=== PATIENT | female | born 1980 | race Caucasian/White ===

== ENCOUNTER 2023-12-21 07:56 | Outpatient (CLI) | payer BC, SELFPAY ==
--- NOTE | ~2023-12-21 | US_ITS ---
Limited Abdominal Sonogram: Real-time sonographic imaging of the right upper quadrant was performed. Clinical History: Abnormal liver enzymes Findings: The liver appears mildly heterogeneous, with no evidence of mass lesion or bile duct dilat ation. Main portal vein demonstrates normal direction of flow. The gallbladder is absent, compatible prior cholecystectomy. The common bile duct measures 5 mm. The visualized pancreas, aorta, and IVC a re unremarkable. Right kidney measures 10.0 cm in length, without evidence of hydronephrosis. Impression: Probable fatty infiltration of liver versus other chronic liver disease. Status post cholecystectomy. Reviewed, dictated and finalized at location . Impression: Probable fatty infiltration of liver versus other chronic liver disease. Status post cholecystectomy.
== END 2023-12-21 07:57 ==
LOC: MICIMG 07:59
PROVIDERS: PCP Student in an Organized Health Care Education/Training Program; Visit Provider Student in an Organized Health Care Education/Training Program
DX: R74.8 Abnormal levels of other serum enzymes (principal); K76.9 Liver disease, unspecified
CPT/HCPCS: 76705

== ENCOUNTER 2024-08-22 07:19 | Emergency (ER) | payer OTHER, SELFPAY ==
[2024-08-22 07:21] VITALS: BP 126/81; PULSE 96; RESP 20; TEMP 37.2; O2SAT 100
--- OUTSIDE RECORDS SUMMARY | 2024-08-22 07:23 | XMS_ITS | Clinical Summary ---
Author Organization [facility] Address [address] [place] [address] Care Team Providers Care Medicaid Specialist Name Role Phone Unavailable Primary Care Provider Unavailabl e Source Comments [facility],non-owned Affiliates and Associated Physician Practices is amultiple site organization consisting of ambulatory clinics and hospital sitesin [place], [place], [place] and [place]. This disclosure is being madepursuant to the Care Everywhere program and may not contain all information available regarding this patient. Last updated 18.[facility] Allergies Active Allergy Reactions Criticality Noted Date Comments Amoxicillin 08/17/2016 Penicillins 08/17/2016 Medications * Be aware that medications may not be up to date on this document. Alwaysverify current medications with the patient. Medication Sig Dispensed Refills Start Date End Date Status hydrocortisone (HYTONE) 2.5 % creamIndications:Eczem a, unspecified type Apply to affected area 2 times daily 100 g 1 08/17/2016 Active fluocinonide (LIDEX) 0.05 % solutionIndications:Fo lliculitis Apply to affected area 2 times daily 60 mL 1 08/17/2016 Active phentermine (ADIPEX-P) 37.5 MG tablet 1 TABLET ONCE A DAY ORALLY 0 11/01/2016 Active doxycycline (VIBRAMYCIN) 100 MG capsule Take 1 Cap by mouth 2 times daily after meals 60 Cap 11/17/2016 Active clindamycin (CLEOCIN) 1 % gel Apply to affected area 2 times daily 60 g 3 11/17/2016 Active fluconazole (DIFLUCAN) 150 MG tablet Take one and then repeat if needed 2 Tab 1 11/17/2016 Active Active Problems No known active problems Family History Medical History Relation Name Comments Cancer - Skin, Melanoma Mother Cancer - Skin, Non Melanoma Neg Hx Eczema Neg Hx Psoriasis Neg Hx Relation Name Status Comments Mother Social History Tobacco Use Types Packs/Day Years Used Date Smoking Tobacco: Never Tobacco Cessation:Counseling Given: No Sex and Gender Information Value Date Recorded Sex Assigned at Not on file Gender Identity Not on file Sexual Orientation Not on file Last Filed Vital Signs Vital Sign Reading Time Taken Comments Blood Pressure 120/80 11/17/2016 3:14 PM CDT pt reports Pulse - - Temperature - - Respiratory Rate - - Oxygen Saturation - - Inhaled Oxygen Concentration - - Weight 90.7 kg (200 lb) 11/17/2016 3:14 PM CDT Height 162.6 cm (5' 4 ) 11/17/2016 3:14 PM CDT Body Mass Index 34.33 11/17/2016 3:14 PM CDT Plan of Treatment Health Maintenance Due Date Last Done Comments LIPID TESTING 1982 MAMMOGRAM 1982 HIV SCREENING 1997 HEPATITIS C SCREENING 11/03/2000 DTAP/TDAP/TD VACCINES (1 - Tdap) 2001 HEPATITIS B VACCINE (1 of 3 - 19+ 3-dose series) 2001 PAP SMEAR 04/16/2013 04/16/2010, 09/07/2009 COVID-19 VACCINE ( - 2023-2 5 season) 2024 INFLUENZA VACCINE (#1) 2024 DEPRESSION SCREENING 07/10/2024 ZOSTER VACCINE (1 of 2) 2032 HIB VACCINE Aged Out No longer eligi ble based on patient's age to complete this topic HPV VACCINE Aged Out No longer eligi ble based on patient's age to complete this topic MENINGOCOCCAL (Group B) VACCINE Aged Out No longer eligible b ased on patient's age to complete this topic MENINGOCOCCAL VACCINE Aged Out No keira suzi eligible based on patient's age to complete this topic PNEUMOCOCCAL VACCINE Aged Out No long er eligible based on patient's age to complete this topic Procedures Procedure Name Priority Date/Time Associated Diagnosis Comments CYTOLOGY SMEAR PAP THIN PREP MINO 04/16/2010 12:00 AM CDT from Last 3 Months or Most Recently Relevant to Health Maintenance Results * CYTOLOGY SMEAR PAP THIN PREP (04/16/2010 12:00 AM CDT) Result CASE NUMBER [id number] [facility] AP CONVERSION Comment: ORDERING PHYSICIAN BOBY ABREU SPECIMEN TYPE Cervix Date LMP none given Menstrual Status . Clinical History none given SPECIMEN SOURCE Cervical SPECIMEN ADEQUACY Satisfactory for evaluation. Endocervical/transformation zone component present. GENERAL CATEGORIZATI Negative for intraepithelial lesion or malignancy. INTERPRETATION Negative for intraepithelial lesion or malignancy. Predominance of coccobacilli consistent with shift in vaginal carly (bacterial vaginosis). Signed by MIR GOMEZ(ASCP) *NOTE The Pap smear is a cancer screening test with an estimated minimum achievable laboratory false-negative rate of 5%*. For this reason, an annual PAP smear is recommended. Please discuss this with your patients. (*MMWR, CDC, June 27, 1997, page 4.) Released by DAISHA VELIZ Fee Code 1 [id number] MISCELLANEOUS SAMPLE S / Unknown 04/16/2010 04/19/2010 11:31 AM CDT Historical Provider LAB - PATHOLOGY/C YTOLOGY ORDERABLES [facility] AP CONVERSION from Last 3 Months or Most Recently Relevant to Health Maintenance
--- OUTSIDE RECORDS SUMMARY | 2024-08-22 07:23 | XMS_ITS | Clinical Summary ---
Author Organization [facility] Address [address] [place] [address] Phone Care Team Providers Care Theoretical Physicist Name Role Phone Provider, None Primary Care Provider Liset Lopez APRN, BILINGUAL SECRETARY Unavailable [phone] Allergies Active Allergy Reactions Criticality Noted Date Comments Penicillins Anaphylaxis,Rash High 08/17/2016 Medications levonorgestrel (Mirena, 52 MG,) 20 MCG/24HR IUD by Intrauterine route once. Active buPROPion (WELLBUTRIN) 150 MG XL tabletIndicatio ns:Other depression Take 1 Tablet by mouth every morning. 30 Tablet 12 Active Active Problems Problem Noted Date Diagnosed Date Depression 09/27/2020 Vaginal discharge 09/27/2020 Vaginal itching 09/27/2020 Elevated blood pressure reading 09/27/2020 BMI 36.0-36.9,adult 09/27/2020 Menorrhagia with regular cycle 09/27/2020 Encounter for gynecological examination (general) (routine) with abnormal findings 09/23/2020 Encounter for routine checki ng of intrauterine contraceptive device 09/23/2020 Immunizations Immunization Administration Dates Next Due Influenza Vaccine greater than 3 yrs 04/25/2020 Family History Medical History Relation Name Comments No Known Problems Brother 1 No Known Problems Brother 2 Diabetes Father Diabetes Maternal Grandfather Breast Cancer Maternal Grandmother Bleeding Disorder Mother transfusio n: platelet disorder Emphysema Paternal Grandfather No Known Problems Paternal Grandmother No Known Problems Sister No Known Problems Son Relation Name Status Comments Brother 1 Alive Brother 2 Alive Father Alive Maternal Grandfather Maternal Grandmother Mother Alive Paternal Grandfather Paternal Grandmother Sister Alive Son Alive Social History Tobacco Use Types Packs/Day Years Used Date Smoking Tobacco: Never Smokeless Tobacco: Never Tobacco Cessation:Counseling Given: No Comments:no vaping or e-cigarettes Alcohol Use Standard Drinks/Week Comments Never 0 (1 standard drink = 0.6 oz pur e alcohol) PHQ-2 Answer Date Recorded Total Score - Questions 1-9 6 09/07 Sexually Active Control Partners Comments Yes Male Comments No Sex and Gender Information Value Date Recorded Sex Assigned at Not on file Legal Sex Female 11:11 AM 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 Gender Identity Not on file Sexual Orientation Not on file Last Filed Vital Signs Vital Sign Reading Time Taken Comments Blood Pressure 135/103 09/23/2020 3:29 PM CDT Pulse 61 09/23/2020 3:29 PM CDT Temperature - - Respiratory Rate - - Oxygen Saturation - - Inhaled Oxygen Concentration - - Weight 95.3 kg (210 lb) 09/23/2020 3:29 PM CDT Height 162.6 cm (5' 4 ) 09/23/2020 3:29 PM CDT Body Mass Index 36.05 09/23/2020 3:29 PM CDT Plan of Treatment Health Maintenance Due Date Last Done Comments Hepatitis C Virus (HCV) Screening 1982 Hepatitis B Immunization (1 of 3 - 19+ 3-dose series) 2001 HPV/Cotest 2012 Discussion re Starting/Frequency of Mammograms 2022 Cervical Cancer Screening (CCS) 09/24/2023 Pap Smear 09/24/2023 09/23/2020 Influenza Immunization (#1) 03/10/202404/09, 04/30/2019 SARS-COV-2 Immunization ( season) 2024 Respiratory Syncytial Virus (RSV) Immunization (Adult) (1 - 1-dose 75+ series) 2057 DTaP/Tdap/Td Immunization Discontinued 04/30/2019 TdaP Immunization Completed 04/30/2019 Meningococcal Immunization (ACWY) Aged Out No longer eligible based on patient's age to complete this topic Pneumococcal Immunization Combined Aged Out No longer eligible based on patient's age to complete this topic Rotavirus Immunization Aged Out No lo nger eligible based on patient's age to complete this topic Procedures Procedure Name Priority Date/Time Associated Diagnosis Comments PATHOLOGY CYTOLOGY CAFE SITE ATTENDANT Routine 09/23/2020 4:32 PM CDT Screening for malignant neoplasm of cervix from Last 3 Months or Most Recently Relevant to Health Maintenance Results * PATHOLOGY CYTOLOGY CAFE SITE ATTENDANT (09/23/2020 4:32 PM CDT) SPECIMEN ADEQUACY Satisfactory for evaluation. Endocervical/transf ormation zone component is present. 10/08/2020 8:48 AM CDT [facility] DESCRIPTIVE DIAGNOSIS NEGATIVE FOR INTRAEPITHELIAL LESIONS OR MALIGNANCY. 10/08/2020 8:48 AM CDT [facility] Reflex if ASCUS? Yes 10/08/2020 8:48 AM CDT [facility] Automated Examination Analysis of this sample has been assisted by an automated imaging and review system ([employer] System, [employer], [place], [place]). This case is further evaluated and finalized by a wood scaler and/or pathologist. 10/08/2020 8:48 AM CDT [facility] Disclaimer The PAP smear is a screening test designed to detect cancerous or precancerous cells of the uterine cervix. It is one of the best means available for detection of cervical cancer but still carries an inherent false-negative rate. The consequences of a false-negative PAP result can be minimized by adhering to current screening guidelines. The following are general guidelines recommended by the ACS, ASCP, ASCCP, and ACOG: PAP testing is recommended every three years for women 21-29, Co-Testing , a PAP test in conjunction with an HPV (Human Papillomavirus) test for women ages 30-65, and no PAP or HPV testing for women under the age of 21 or older than 65 unless clinically indicated. 10/08/2020 8:48 AM CDT [facility] Other (Cervix/Endocerv ix) Non-Phlebotomy Collection / Unknown 09/23/2020 4:32 PM CDT 09/23/2020 4:32 PM CDT us Liset Nelson APRN, CNP PATHOLOGY/CYTOLOGY ORDERABLES Final Result [facility] [address] [place] [place] [address], [place] from Last 3 Months or Most Recently Relevant to Health Maintenance Care Teams Theoretical Physicist Relationship Specialty Start Date End Date Provider, None [place] PCP - General 09/23/20 Liset Nelson APRN, CNP [place] Nurse Practitioner Advanced Practice Nurse 09/23/20
--- OUTSIDE RECORDS SUMMARY | 2024-08-22 07:23 | XMS_ITS | Referral Summary ---
Author Organization [facility] Address [address] [place] [address] Care Team Providers Care Completions Manager Name Role Phone Unavailable Primary Care Provider Unavailabl e Source Comments [facility],non-owned Affiliates and Associated Physician Practices is amultiple site organization consisting of ambulatory clinics and hospital sitesin [place], [place], [place] and [place]. This disclosure is being madepursuant to the Care Everywhere program and may not contain all information available regarding this patient. Last updated 18.[facility] [employer] Allergies Active Allergy Reactions Criticality Noted Date [...] Active Active Problems No known active problems Social History Tobacco Use Types Packs/Day Years [...] 11/17/2016 3:14 PM CDT Plan of Treatment Not on file Procedures Procedure Name Priority Date/Time Associated Diagnosis [...] vaginal carly (bacterial vaginosis). Signed by MIR GOMEZ([facility]) *NOTE The Pap smear is a cancer screening test with an estimated minimum achievable laboratory false-negative rate of 5%*. For this reason, an annual PAP smear is recommended. Please discuss this with your patients. (*MMWR, CDC, June 27, 1997, page 4.) Released by DAISHA VELIZ Fee Code 1 77249 MISCELLANEOUS SAMPLE S / Unknown 04/16/2010 04/19/2010 11:31 AM CDT Historical Provider LAB - PATHOLOGY/C YTOLOGY ORDERABLES [facility] AP CONVERSION from Last 3 Months or Most Recently Relevant to Health Maintenance
--- OUTSIDE RECORDS SUMMARY | 2024-08-22 07:23 | XMS_ITS | Data Portability ---
Author Organization [facility] [place] Address [address] [place] [address] [place] [address] Care Team Providers Care Soft Mud Molder Name Role Phone ELIJAHJOYCE JOSE Primary Care Provider Assessment No assessment recorded. Plan of Treatment Reminders Order Date Submit Date Provider Last Modified By Organization Details Last Modified Time Details Appointments None recorded. Lab None recorded. Referral None recorded. Procedures None recorded. Surgeries None recorded. Imaging US, pelvis [address], [address], [address], [place], [address], 18:29:59 US, transvagina l [address] [facility] [address], [place], [address], 18:29:59 Medication Orders None recorded. Patient TargetsNo targets recorded. Patient InstructionsNo instructions recorded. Reason for Referral None Reported. Results Created Date Observation Date Name Description Value Unit Range Abnormal Flag Note LastModifiedBy Organization Detail LastModifiedTime 06/16/2006/16/2023 VAGIN ITIS/ VAGIN OSIS, DNA PROBE jaciel sp. detection, direct probe Negati ve negati ve Not Available [facility] (Lab) [address] [facility], [place], [address], 06/19/2023 14:23:46 06/16/2006/16/2023 VAGIN ITIS/ VAGIN OSIS, DNA PROBE gardnerella vag. detection, direct probe Negati ve negati ve Not Available [facility] (Lab) [address] [facility], [place], [address], 06/19/2023 14:23:46 06/16/20 23 06/16/2023 VAGIN ITIS/ VAGIN OSIS, DNA PROBE trichomonas vag. detection, direct probe Negati ve negati ve Not Available [facility] (Lab) [address] [facility], [place], [address], 06/19/2023 14:23:46 06/22/20 23 06/22/2023 US, pelvi s No observ ation record ed. [email or web address] [place] [address], [place], [address], 06/22/2023 18:09:27 06/22/20 23 06/22/2023 US, trans vagin al No observ ation record ed. [email or web address] [place] [address], [place], [address], 06/22/2023 18:09:18 06/22/20 23 06/22/2023 US, pelvi s No observ ation record ed. HEIDI [address], [facility], [place], [address], 06/25/2023 15:52:58 Result Notes None recorded. Procedures Surgical History Date Name Laterality Status Provider Name and Address Organization Details Recorded Time 11/08/19 23 Date of Last Mammogram completed [facility] 06/15/2023 17:20:12 07/10/19 15 cholecystectomy completed [facility] 06/15/2023 17:14:08 07/10/19 07 Dilation and Curettage completed [facility] 06/15/2023 17:13:57 Imaging Results Imaging Date Name Status LastModified by Organization Details LastModified Time 06/22/2023 US, pelvis completed [email or web address] [place] [address], [place], [address], 06/22/2023 18:09:27 06/22/2023 US, transvaginal completed [email or web address] Rei rao [address], [place], [address], 06/22/2023 18:09:18 06/22/2023 US, pelvis completed HEIDI [address], [place], [address], 06/25/2023 15:52:58 Procedure Notes None recorded. Medical Equipment None Reported. Allergies No known drug allergies Medications Name Sig Start Date Stop Date Status Note LastModified by Organization Details LastModified Time fluconazole 150 mg tablet TAKE 1 TABLET BY MOUTH ONCE FOR 1 DOSE AND REPEAT IN 72 HOURS IF NEEDED 06/15 completed Not Available Not Available Not Available ondansetron HCl 4 mg tablet 06/15 completed Not Available Not Available Not Available bupropion HCl XL 300 mg 24 hr tablet, extended release TAKE 1 TABLET BY MOUTH ONCE DAILY active Not Available Not Available No t Available Wegovy 1 mg/0.5 mL subcutaneous pen injector 06/15 completed Not Available Not Available Not Available Wegovy 0.25 mg/0.5 mL subcutaneous pen injector 06/15 completed Not Available Not Available Not Available Wegovy 0.5 mg/0.5 mL subcutaneous pen injector 06/15 completed Not Available Not Available Not Available Vitals Date Recorded Body height Body mass index (BMI) Body weight Provider Name and Address Organization Details Last Updated DateTime 06/15/2023 162.56 cm 36 kg/m2 57604.4 g Lisa Alvarado ID - [facility] 06/15/2023 17:16:05 Date Recorded Systolic blood pressure Diastolic blood pressure Provider Name and Address Organization Details Last Updated DateTime 06/15/2023 122 mm[Hg] 80 mm[Hg] Bambi Soto, NANDO- [address], [place], [address], [facility] 06/15/2023 17:25:18 Social History Question Answer Notes LastModified by Organizat ion Details LastModified Time Tobacco Smoking Status Never Smoker Lisa Alvarado ángel, [facility] 06/15/2023 17:13:46 What Is Your Level Of Alcohol Consumption? None Information not available 06/15/2023 In The 14 Days Before Symptom Onset, Have You Had Close Contact With A Laboratory-confirm ed COVID-19 While That Case Was Ill? No Information n ot available 06/15/2023 In The 14 Days Before Symptom Onset, Have You Had Close Contact With A Person Who Is Under Investigation For COVID-19 While That Person Was Ill? No Information not available 06/15/2023 Have You Been To An Area Known To Be High Risk For COVID-19? No Information not available 06/15/2023 Do You Use Any Illicit Or Recreational Drugs? No Information not available 06/15/2023 Sex: Unknown Functional Status None recorded. Mental Status None recorded. Family History Relationship Description Onset Age of this Age Resolved Age Notes LastModified by Organization Details LastModified Time Mother Anemia Not available 17:12:58 Maternal Grandmother Malignant tumor of breast Not available 2022 17:13:09 Paternal Grandfather Heart disease Not available 2022 17:13:17 Father Diabetes mellitus Not available 2022 17:13:31 Maternal Grandfather Diabetes mellitus Not available 2022 17:13:31 Medical History Condition Response Anxiety Disorder Y Depression/ depression Y Gynecological History Statement/Question Response Abnormal Pap Y Date of Last Mammogram 11/07/2022 Flow Moderate Date of LMP 06/09/2023 On BCP's at Conception? Y Was last menstrual period normal Y STIs/STDs N HPV Vaccine N Duration of Flow (days) 4 Current Control Method IUD Age at First Child 29 Are cycles usually normal Y Sexually Active? N Menses Monthly N Age of first menstrual cycle 14 Date of Last Pap Smear LMP Definite Obstetrics History GPAL:G 2 P 1 0 1 1 Type Value Full Term 1 Induced 1 Living 1 Total 2 Past Encounters Encounter ID Performer Location Encounter Start Date Encounter Closed Date Diagnosis/Indication Diagnosis SNOMED-CT Code Diagnosis ICD10 Code Diagnosis Note [id number] Bambi Soto [facility] [address],[facility] [place] [address] 06/15/2023 17:03:45 06/15/2023 17:48:36 Vaginitis 70136626 N76.0 Today we discussed prn use of Boric acid with sx's onset.Inst ructions reviewed and understand ing verbalized .Instructi ons given for additional home reference. Swab sentDeclin ed std screenWe will f/u if this does not work for her after 3mos.If it works no need to f/u.Will contact with results a vaginitis swab and if further treatment is required. Time spent in visit is a total of 30 mins with at least 50% of visit consisting of counseling and review of plan of care. Premenstru al tension syndrome 71532444 N94.3 BloatingAb dominal crampingRe started her cycle with IUD mirena Abnormal u terine bleeding 8236504279 9100 N93.9 We agreed to US since new onset of menses on her mirena is new for her and bringing on more sx's of abd bloating and dysmenorrh ea.Will f/u televisit to discuss unless results warrant in office exam/visit .Stuart lubin verbalized . [id number] Elaina Cruz [place] [address] [address] 06/22/2023 17:15:14 06/22/2023 18:12:17 Abnormal uterine bleeding [id number] 9100 N93.9 [id number] Bambi Soto [facility] [address],[facility] [place] [address] 06/23/2023 11:32:40 06/23/2023 12:40:43 Abnormal uterine bleeding [id number] 9100 N93.9 Today we reviewed US results and discussed plan of care.We agreed to monitor at this time as bleeding likely represents return of a light period as it is cyclic.PMS feelings that she will get are also cyclic.She will reach out with any changes in her sx's or health status.Und erstanding verbalized and agreeable to plan of care. Total time of virtual/te le-visit was approx 21 mins with >50% consisting of counseling , education of patient's plan of care. Health Concerns Section Related Observation LastModified by Organization Detai ls LastModified Time None Recorded Concern Status LastModified by Organization Details LastModified Time None Recorded Advance Directives Directive None Recorded Payers Encounter Date Sequence Insurance Name Policy Number Policy Rolon Covered Member ID Rolon Member ID Guarantor Name 06/15/2023 1 [employer]: [employer] 133 Rebekah Villalta [id number] Rebekah Villalta 06/22/2023 1 [employer]EE [employer]GRAM 133 Rebekah Jose D Green [id number] Rebekah Green 06/23/2023 1 [employer]EE [employer] 133 Rebekah Jose D Green [id number] Rebekah Pawan Notes Date Note Type Note Provider Name and Address Organization Details Recorded Time 06/15/2023 text/html Rebekah presents today to discuss sx's of yeast infection up to 4 day prior to onset of a menses; this happened prior to mirena IUD insertion. She hasn't had a menses on mirena since placement until now.Return of light monthly 3-4 days cycle.Sx's stop after period starts.Also increase in PMS sx's which include abdominal bloating and cramping.No mood sx'sNo changes in appetite.She is not currently SAShe has no yeast infection/pms sx's today Neg pain of abd/pelvis/flank Neg urinary sx'sNeg GI sx'sNeg N/V/F/C/DNeg Vag d/c, odor, irritation, itching Health Hx was reviewed and updated as reported in chart. Bambi Soto, [facility]- [address], [place], [address], [place] ID - [facility] 06/15/2023 17:47:58 06/23/2023 text/html Tele-visit for ultrasound results & review of plan of care. Phone Consent: This visit was completed via Virtual Visit Zoom/Tele-visit; all issues as below were discussed and addressed but no physical exam was performed. If it was felt that the patient should be evaluated in clinic then they were directed there. The patient verbally consented to this virtual Zoom or Tele-visit. BRIANA Dougherty- [address], [place], [address], [place] [facility] 06/23/2023 12:31:34 OBGyn Episode Ob Episode Information Episode Created Date Number of Fetuses Patient Bloodtype Patient rh Status Prepregnancy Weight lbs Domestic Partner Domestic Partner Phone Father Name Director Of Occupational Therapy Status 06/15/20 1 CLOSED Fetus Data First Name Last Name Admitted to NICU Weight (g) Sex Living Outcome Pediatric Complications Fetus ID Race Codes Race Delivery Type 2267.96 M Full Term [id number] Vaginal Delivery Gilles Calculation Initial Gilles Date Initial Exam Date Initial Exam Provider Initial Ultrasound Date Last Menstrual Period Date Ultra Sound Weeks Gestation 0 Eighteen To Twenty Week Gilles Update Ultra Sound Date Fundal Height At Umbil Quickening Date Ultra Sound Latest Weeks Gestation Final Gilles Confirmed By Final Gilles Confirmed Date Final Gilles Date Ultra Sound Latest Days Gestation 0 0 Menstrual History Last Menstrual Date Menses Monthly On Bcp Conception Prior Menses Frequency Hcg Plus Date Menarche Onset Age Delivery Information Delivery Date Delivery Type Labor Anesthesia Weeks Gestation Incision Type Labor Labor Length Hrs Delivered By Post Complications Tubal Sterilization Discharge Date Comments 0 39 Discharge Information Feeding Method Contraceptive Method Maternal HG B and HCT Levels Ob Episode Information Episode Created Date Number of Fetuses Patient Bloodtype Patient rh Status Prepregnancy Weight lbs Domestic Partner Domestic Partner Phone Father Name Director Of Occupational Therapy Status 06/15/20 1 CLOSED Fetus Data First Name Last Name Admitted to NICU Weight (g) Sex Living Outcome Pediatric Complications Fetus ID Race Codes Race Delivery Type , Induced [id number] Gilles Calculation Initial Gilles Date Initial Exam Date Initial Exam Provider Initial Ultrasound Date Last Menstrual Period Date Ultra Sound Weeks Gestation 0 Eighteen To Twenty Week Gilles Update Ultra Sound Date Fundal Height At Umbil Quickening Date Ultra Sound Latest Weeks Gestation Final Gilles Confirmed By Final Gilles Confirmed Date Final Gilles Date Ultra Sound Latest Days Gestation 0 0 Menstrual History Last Menstrual Date Menses Monthly On Bcp Conception Prior Menses Frequency Hcg Plus Date Menarche Onset Age Delivery Information Delivery Date Delivery Type Labor Anesthesia Weeks Gestation Incision Type Labor Labor Length Hrs Delivered By Post Complications Tubal Sterilization Discharge Date Comments 7 Discharge Information Feeding Method Contraceptive Method Maternal HG B and HCT Levels
--- OUTSIDE RECORDS SUMMARY | 2024-08-22 07:23 | XMS_ITS | Patient Health Summary ---
Author Organization [facility] Address [address] [place] [address] Care Team Providers Care Business Continuity Analyst Name Role Phone Unavailable Primary Care Provider Unavailabl e Note from [facility],non-owned Affiliates and Associated Physician Practices is amultiple site organization consisting of ambulatory clinics and hospital sitesin [place], [place], [place] and [place]. This disclosure is being madepursuant to the Care Everywhere program and may not contain all information available regarding this patient. Last updated 18.[facility] Allergies * Amoxicillin * Penicillins Medications * Be aware that medications may not be up to date on this document. Alwaysverify current medications with the patient. * hydrocortisone (HYTONE) 2.5 % cream(Started 08/17/2016) Apply to affected area 2 times daily 1 refill remaining * fluocinonide (LIDEX) 0.05 % solution(Started 08/17/2016) Apply to affected area 2 times daily 1 refill remaining * phentermine (ADIPEX-P) 37.5 MG tablet(Started 11/01/2016) 1 TABLET ONCE A DAY ORALLY * doxycycline (VIBRAMYCIN) 100 MG capsule(Started 11/17/2016) Take 1 Cap by mouth 2 times daily after meals * clindamycin (CLEOCIN) 1 % gel(Started 11/17/2016) Apply to affected area 2 times daily 3 refills remaining * fluconazole (DIFLUCAN) 150 MG tablet(Started 11/17/2016) Take one and then repeat if needed 1 refill remaining Active Problems No known active problems Social [...] Mass Index 34.33 11/17/2016 3:14 PM CDT Procedures * CYTOLOGY SMEAR PAP THIN PREP(Performed 04/16/2010) * CYTOLOGY SMEAR PAP THIN PREP(Performed 09/07/2009) Results * CYTOLOGY SMEAR PAP THIN PREP (04/16/2010 12:00 AM CDT) Only the most recent of2 resultswithin the time period is included. Result CASE NUMBER [id number] [facility] CONVERSION Comment: ORDERING PHYSICIAN BOBY ABREU [...] Released by DAISHA VELIZ Fee Code 1 65240 MISCELLANEOUS SAMPLE S / Unknown 04/16/2010 04/19/2010 11:31 AM CDT Historical Provider LAB - PATHOLOGY/C YTOLOGY ORDERABLES [facility] AP CONVERSION
--- OUTSIDE RECORDS SUMMARY | 2024-08-22 07:24 | XMS_ITS | Referral Summary ---
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 Gender Identity Not on file Sexual Orientation Not on file Plan of Treatment Not on file Procedures Procedure Name Priority Date/Time Associated Diagnosis Comments SCREENING MAMMOGRAM BILATERAL W ANTONIO Schedule Routine, Read Routine (OP Routine) 12/07/2023 8:37 AM CDT Screening mammogram, encounter for from Last 3 Months or Most Recently Relevant to Health Maintenance Results * Screening Mammogram Bilateral W Antonio (12/07/2023 8:37 AM CDT) Anatomical Region Laterality Modality Breast Bilateral Mammography Impressions 12/07/2023 10:22 AM CDT BI-RADS ATLAS category (overall): 1 - Negative There is no mammographic evidence of malignancy. A 1 year screening mammogram is recommended. The patient has been or will be contacted. We recommend annual screening mammography for women at average risk of breast cancer beginning at age 40, based on guidelines of the [employer] (ACR Practice Parameter for the Performance of Screening and Diagnostic Mammography) and [employer]. For women with and elevated risk of breast cancer, please refer to the ACR Practice Parameter for specific screening recommendations. The patient will be entered into a reminder system with a target due date of 1 year for her next screening exam. Narrative 12/07/2023 10:22 AM CDT Screening Mammogram Bilateral W Antonio: 12/07/23 The study was acquired using full field digital technology and interpreted from soft copy. 2D digital mammographic views, as well as 3D digital tomosynthesis were performed in the CC and MLO projections. CLINICAL: Screening mammogram, encounter for. No relevant medical history has been documented for this patient. History of breast cancer in Maternal Grandmother. COMPARISONS: 11/24/2022 Screening Mammogram Bilateral W Antonio BREAST TISSUE: The breasts are almost entirely fatty. FINDINGS: There is no new suspicious finding in either breast on mammogram. us Self Screening Mammogram IMG MAMMO PROCEDURES Fi nal Result from Last 3 Months or Most Recently Relevant to Health Maintenance Insurance [facility] FEDERAL Care Teams Inventory Accountant Relationship Specialty Start Date End Date Lan Madera DO [address] [place] [id number] PCP - General Family Medicine 05/31/21
--- OUTSIDE RECORDS SUMMARY | 2024-08-22 07:24 | XMS_ITS | Clinical Summary ---
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 Gender Identity Not on file Sexual Orientation Not on file Obstetrics History Para Term AB IAB SAB Ectopic Multiple Livin g Live Births 1 Date Outcome GA Total Labor Labor/2nd/3rd Weight Sex Type Anes PTL Jumana A1 A5 Name Clin Plan of Treatment Health Maintenance Due Date Last Done Comments Cervical Cancer Screening 1982 Depression Screening 1982 Hepatitis C Screening 1982 Varicella Vaccines (1 of 2 - 13+ 2-dose series) 11/09/1995 Hepatitis B Screening 2000 Regular Well Visit/Exam 18-64 2000 Influenza Vaccine (#1) 2024 , 04/25/2020, 04/30/2019 Breast Cancer Screening-Mammogram 12/06/2024 12/07/2023, 11/24/2022 DTaP/Tdap/Td Vaccine (2 - Td or Tdap) 04/30/2029 04/30/2019 HPV Vaccines Aged Out No longer eligi ble based on patient's age to complete this topic Pneumococcal vaccine <65 Aged Out No longer eligible based on [...] age 40, based on guidelines of the [employer] (ACR Practice Parameter for the Performance of Screening and Diagnostic Mammography) and [employer]. For women [...] Most Recently Relevant to Health Maintenance Insurance [facility] FEDERAL Care Teams Windows Admin Relationship Specialty Start Date End Date Lan Madera DO [address] [place] [id number] PCP - General Family Medicine 05/31/21
--- OUTSIDE RECORDS SUMMARY | 2024-08-22 07:24 | XMS_ITS | Encounter Summary ---
Author Organization [facility] Address [address] [place] [address] Care Team Providers Care Sand Tester Name Role Phone Lan Madera DO Primary Care Provider + Encounter Details Date Type Department Care Team (Late st Contact Info) Description 04/17/[address] [facility] Patient Accounts [address], [place] [id number] [facility] Payment [facility] - auto pay Social History Tobacco Use Types Packs/Day Years Used Date Smoking Tobacco: Never Passive Smoke Exposure: Never Smokeless Tobacco: Never Alcohol Use Standard Drinks/Week Comments Never 0 (1 standard drink = 0.6 oz pur e alcohol) AUDIT-C Answer Date Recorded Frequency of Alcohol Consumption Never 04/30/2019 Average Number of Drinks Not on file 019 Frequency of Binge Drinking Not on file 04/10 PHQ-2 Answer Date Recorded Patient Health Questionnaire-2 Score 0 10/02/2023 Comments No Sex and Gender Information Value Date Recorded Sex Assigned at Female 07/04/2024 9:58 AM CREDENTIALS SPECIALIST Legal Sex Female 11:21 AM CDT Gender Identity Female 07/04/2024 9:58 AM CREDENTIALS SPECIALIST Sexual Orientation Not on file 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 Not on file Not on file documented as of this encounter Plan of Treatment Upcoming Encounters Date Type Department Care Team (Late st Contact Info) Description 01/02/2025 10:20 AM CDT Office Visit [facility] Family [facility] Internal Medicine [address] [phone] [place] [address] [place] [phone] documented as of this encounter Visit Diagnoses Not on filedocumented in this encounter Additional Health Concerns Assessment Noted Time PHQ-9 Depression Total Score: 9 03/10/20 21 12:20 PM CDT documented as of this encounter Care Teams Sand Tester Relationship Specialty Start Date End Date aLn Madera DO [address] [place] [id number] PCP - General FAMILY PRACTICE 04/18/19 documented as of this encounter
--- OUTSIDE RECORDS SUMMARY | 2024-08-22 07:24 | XMS_ITS | Clinical Summary ---
Author Organization [facility] Address [facility] [place] [address] Care Team Providers Care Health Consultant Name Role Phone Lan Madera Pillo AMADOR Primary Care Provider + Allergies Active Allergy Reactions Criticality Noted Date Comments Penicillins Anaphylaxis,Rash High 08/17/2016 Medications levonorgestrel (MIRENA, 52 MG,) 20 MCG/24HR IUD 1 Intra Uterine Device by Intrauterine route. Active Multiple Vitamins-Minera ls (CENTRAVITES) Tab Take 1 tablet by mouth. Active buPROPion XL (WELLBUTRIN XL) 300 MG 24 hr tabletIndicatio ns:Major depressive disorder with single episode, in full remission (CMS/HCC) Take 1 tablet (300 mg total) by mouth daily. 90 tablet 3 4 Active ondansetron (ZOFRAN) 4 MG tabletIndicatio ns:Nausea Take 1 tablet (4 mg total) by mouth every 8 (eight) hours as needed for Nausea. 20 tablet 4 Active semaglutide-adela ght management (WEGOVY) 1.7 mg/dose injection (PEN)Indication s:Weight Loss Inject 1.7 mg into the skin once a week. Indications: Weight Loss 12 mL 1 4 Active Active Problems Problem Noted Date Diagnosed Date Metabolic dysfunction-associated steatohepatitis (MASH) 07/04/2024 Blood pressure elevated without history of HTN 0 10/01/2020 BMI 36.0-36.9,adult 09/27/2020 Depression 09/27/2020 Menorrhagia with regular cycle 09/27/2020 Encounters Date Type Department Care Team Description 07/29/2024 Telephone [facility] Family & Internal Medicine [address] [phone] Lan Madera, DO Prior Authorization (Wegovy 1.7mg) 07/04/2024 9:40 AM OFFICE MANAGER RECEPTIONIST Office Visit [facility] Family & Internal Medicine [address] [phone] Lan Madera, DO Weight Check (The patient presents to follow up on wegovy. The patient is not having side effects and tolerating well. ) 07/04/2024 Travel from Last 3 Months Immunizations Name Administration Dates Next Due Flublok (RIV3, Trivalent, 0.5mL) 04/03/2024 Fluzone 6 Months+ Quad (0.5 mL Prefilled Syringe) 04/30/2019 Influenza (Generic) 04/07/2023,04/25/2020 MODERNA COVID-19 (12+) MRNA, LNP-S, PF, 100 MCG/ 0.5 ML DOSE 05/28/2021,08/06/2020,07/06/2020 Tdap (Boostrix) 04/30/2019 Family History Medical History Relation Comments Diabetes Father Cancer Maternal Grandmother Breast Cancer Mother Melanoma Heart Disease Paternal Grandfather Relation Status Comments Father Maternal Grandmother Mother Paternal Grandfather Social History Tobacco Use Types Packs/Day Years Used Date Smoking Tobacco: Never Passive Smoke Exposure: Never Smokeless Tobacco: Never Tobacco Cessation:Counseling Given: Not Answered Alcohol Use Standard Drinks/Week Comments Never 0 [...] Sex Assigned at Female 07/04/2024 9:58 AM OFFICE MANAGER RECEPTIONIST Legal Sex Female 11:21 AM CDT Gender Identity Female 07/04/2024 9:58 AM OFFICE MANAGER RECEPTIONIST Sexual Orientation Not on file 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 Not on file Not on file Not on file Last Filed Vital Signs Vital Sign Reading Time Taken Comments Blood Pressure 112/68 07/04/2024 9:58 AM OFFICE MANAGER RECEPTIONIST Pulse 87 07/04/2024 9:58 AM OFFICE MANAGER RECEPTIONIST Temperature 36.7 C (98.1 F) 07/04/2024 9:58 AM OFFICE MANAGER RECEPTIONIST Respiratory Rate 16 07/04/2024 9:58 AM OFFICE MANAGER RECEPTIONIST Oxygen Saturation 97% 07/04/2024 9:58 AM OFFICE MANAGER RECEPTIONIST Inhaled Oxygen Concentration - - Weight 73 kg (161 lb) 07/04/2024 9:58 AM OFFICE MANAGER RECEPTIONIST Height 162.6 cm (5' 4 ) 07/04/2024 9:58 AM OFFICE MANAGER RECEPTIONIST Body Mass Index 27.64 07/04/2024 9:58 AM OFFICE MANAGER RECEPTIONIST Plan of Treatment Upcoming Encounters Date Type Department Care Team (Late st Contact Info) Description 01/02/2025 10:20 AM CDT Office Visit [facility] Family & Internal Medicine [address] [phone] Lan Madera, [address] [place] [id number] Health Maintenance Due Date Last Done Comments Hepatitis B Vaccines (1 of 3 - 19+ 3-dose series) 2001 Annual Physical 04/30/2020 04/30/2019 Cervical Cancer Screening Pap Smear (Age 30 to 64) Every 3 Years 09/24/2023 09/23/2020, 04/16/2010 PHQ-2 (Physician [place]) 07/10/2024 10/02/2023 PHQ-2 (Physician [place]) 10/01/2024 10/02/2023 Mammogram Screening 12/06/2024 12/07/2023, 11/24/2022, 11/24/2022 Cervical Cancer Screening Pap with HPV Testing (Age 30 to 64) Every 5 Years 01/06/2025 09/23/2020, 04/16/2010 Cervical Cancer Screening with HPV 01/06/2025 DTaP, Tdap and Td Vaccines (2 - Td or Tdap) 04/30/2029 04/30/2019 Hepatitis C Completed 01/01/2024 COVID-19 Vaccine Completed 04/03/2024, , 05/28/2021, Additional history exists Influenza Adult Completed 04/03/2024, 03/11, 04/25/2020, Additional history exists HPV Vaccines Aged Out No longer eligi ble based on patient's age to complete this topic Meningococcal B Vaccine Aged Out No l onger eligible based on patient's age to complete this topic Meningococcal Vaccine Aged Out No keira suzi eligible based on patient's age to complete this topic Pneumococcal Vaccine: Pediatrics (0 to 5 Years) and At-Risk Patients (6 to 64 Years) Aged Out No longer eligible based on patient's age to complete this topic RSV Immunizations Under 20 Months Aged Out No longer eligible based on patient's age to complete this topic Procedures Procedure Name Priority Date/Time Associated Diagnosis Comments CBC W/DIFF AUTOMATED Routine 07/04/2024 11:49 AM OFFICE MANAGER RECEPTIONIST Metabolic dysfunction-associate d steatohepatitis (MASH) Elevated liver enzymes Elevated bilirubin HEPATIC FUNCTION PANEL Routine 11:49 AM OFFICE MANAGER RECEPTIONIST Metabolic dysfunction-associate d steatohepatitis (MASH) Elevated liver enzymes Elevated bilirubin GGT, GAMMA GLUTAMYLTRANSFERASE Routine 07/04/2024 11:49 AM OFFICE MANAGER RECEPTIONIST Metabolic dysfunction-associate d steatohepatitis (MASH) Elevated liver enzymes Elevated bilirubin HEPATITIS PANEL,ACUTE Routine 01/01/2024 9:11 AM CDT Elevated liver enzymes MAMMOGRAM GENERIC (SCAN ORDER) Routine 11/24/2022 from Last 3 Months or Most Recently Relevant to Health Maintenance Results * HEPATIC FUNCTION PANEL (07/04/2024 11:49 AM OFFICE MANAGER RECEPTIONIST) TOTAL PROTEIN S/P/B 6.6 6.1 - 8.1 g/dL [facility] ALBUMIN S/P/B 4.0 3.6 - 5.1 g/dL [facility] GLOBULIN 2.6 1.9 - 3.7 g/dL (calc) [facility] ALBUMIN/GLOBULIN RATIO 1.5 1.0 - 2.5 (calc) [facility] BILIRUBIN TOTAL S/P/B 0.8 0.2 - 1.2 mg/dL [facility] [place] [facility] BILIRUBIN DIRECT S/P/B 0.2 < OR = 0.2 mg/dL [facility] [place] [facility] BILIRUBIN INDIRECT S/P/B 0.6 0.2 - 1.2 mg/dL (calc) [facility] [place] [facility] ALKALINE PHOSPHATASE S/P/B 61 31 - 125 U/L [employer] [facility] AST 13 10 - 30 U/L [employer] [facility] ALT 7 6 - 29 U/L [facility] [facility] 07/04/2024 11:4 9 AM OFFICE MANAGER RECEPTIONIST 07/04/2024 11:50 AM OFFICE MANAGER RECEPTIONIST Narrative Resulting Agency Comment Performing Organization Information: Site ID: [id number] Name: [facility] Address: [address] [place] [address] Director: Kinjal Lopez MD Lan Madera DO LABORATORY Final Re sult [facility] [address] [place] [address], * CBC W/DIFF AUTOMATED (07/04/2024 11:49 AM OFFICE MANAGER RECEPTIONIST) WBC 6.9 3.8 - 10.8 Thousand/u L [employer] [facility] RBC 4.31 3.80 - 5.10 Million/uL [employer] [facility] HGB 12.8 11.7 - 15.5 g/dL [employer] [facility] HCT 39.2 35.0 - 45.0 % [employer] [facility] MCV 91.0 80.0 - 100.0 fL [employer] [facility] MCH 29.7 27.0 - 33.0 pg [employer] [facility] MCHC 32.7 32.0 - 36.0 g/dL [employer] [facility] Comment: For adults, a slight decrease in the calculated MCHC value (in the range of 30 to 32 g/dL) is most likely not clinically significant; however, it should be interpreted with caution in correlation with other red cell parameters and the patient's clinical condition. RDW 12.3 11.0 - 15.0 % [employer] [facility] PLT 325 140 - 400 Thousand/u L [employer] [facility] MPV 9.7 7.5 - 12.5 fL [facility] ABS. NEUTROPHILS 4,250 1,500 - 7,800 cells/uL [facility] ABS. LYMPHOCYTES 2,118 850 - 3,900 cells/uL [facility] ABS. MONOCYTES 435 200 - 950 cells/uL [facility] ABS. EOSINOPHILS 48 15 - 500 cells/uL [facility] ABS. BASOPHILS 48 0 - 200 cells/uL [facility] SEG NEUTROPHILS 61.6 % [facility] LYMPHOCYTES 30.7 % [facility] MONOCYTES 6.3 % [facility] EOSINOPHILS 0.7 % [facility] BASOPHILS 0.7 % [facility] 07/04/2024 11:4 9 AM OFFICE MANAGER RECEPTIONIST 07/04/2024 11:50 AM OFFICE MANAGER RECEPTIONIST Narrative Resulting Agency Comment Performing Organization Information: Site ID: [id number] [id number] Address: [address] [place] [phone] Director: Kinjal Lopez MD Lan Madera DO LABORATORY Final Re sult Performing Organization Address City/[facility]/ZIP Co de Phone Number [employer] [facility] [employer] [address] [address], [place] * GGT, GAMMA GLUTAMYLTRANSFERASE (07/04/2024 11:49 AM OFFICE MANAGER RECEPTIONIST) Pathologist [facility] GGT 11 3 - 55 U/L [facility] [employer] [place] [facility] 07/04/2024 11:4 9 AM OFFICE MANAGER RECEPTIONIST 07/04/2024 11:50 AM OFFICE MANAGER RECEPTIONIST Narrative Resulting Agency Comment Performing Organization Information: Site ID: [id number] Name: [id number] Address: [address] [place] [phone] Director: Kinjal Lopez MD Lan Madera DO LABORATORY Final Re sult Performing Organization Address City/[facility] Co de Phone Number [employer] [facility] [employer] [address] [address], [place] * HEPATITIS PANEL,ACUTE (01/01/2024 9:11 AM CDT) HEPATITIS B SURFACE AG NON-REACT SERGEY NON-REACT SERGEY 01/01/2024 7:23 PM CDT [facility] Comment:HBsAg NOT DETECTED. HEP B CORE IGM NON-REACT SERGEY NON-REACT SERGEY 01/01/2024 7:23 PM CDT [facility] Comment: IgM ANTI HBc NOT DETECTED. DOES NOT EXCLUDE THE POSSIBILITY OF EXPOSURE TO OR INFECTION WITH HBV. NO RETEST REQUIRED. HIGH DOSES OF BIOTIN MAY INTERFERE WITH THIS TEST RESULT. CORRELATION TO CLINICAL HISTORY AND PRESENTATION RECOMMENDED. HAV IGM NON-REACT SERGEY NON-REACT SERGEY 01/01/2024 7:23 PM CDT [facility] Comment: IgM ANTI HAV NOT DETECTED. DOES NOT EXCLUDE THE POSSIBILITY OF EXPOSURE TO OR INFECTION WITH HAV. LEVELS OF IgM ANTI HAV MAY BE BELOW THE CUTOFF IN EARLY INFECTION. HEPATITIS C AB NON-REACT SERGEY NON-REACT SERGEY 01/01/2024 7:23 PM CDT [facility] Comment: ANTIBODIES TO HCV NOT DETECTED. DOES NOT EXCLUDE THE POSSIBILITY OF EXPOSURE TO HCV. 01/01/2024 9:11 AM CDT Lan Madera DO LABORATORY Final Re sult [facility] [address] [place] [address], [id number] * MAMMOGRAM (11/24/2022) Anatomical Region Laterality Modality Other us Doc [facility] Scanned SCANNING Final Resu lt from Last 3 Months or Most Recently Relevant to Health Maintenance Insurance [address] Care Teams Health Consultant Relationship Specialty Start Date End Date Lan Madera DO [facility] [place] [address] PCP - General FAMILY PRACTICE 04/18/19
[2024-08-22] MEDS: ONDANSETRON HCL ODT 4 MG TABLET PO (07:35)
[2024-08-22 08:15] LABS: Influenza A QL RT-PCR Negative (Negative); Influenza B QL RT-PCR Negative (Negative); RSV RNA, RT-PCR Negative (Negative); SARS-CoV-2 RNA PCR Negative (Negative)
[2024-08-22] MEDS: MAG HYDROX/AL HYDROX/SIMETH 30 ML UDC PO (08:21)
[2024-08-22] MEDS: KETOROLAC 30 MG/ML VIAL (*BKC) IM (08:21)
[2024-08-22] MEDS: FAMOTIDINE 20 MG TABLET PO (08:21)
--- NOTE | 2024-08-22 10:45 | ED_ITS ---
HPI - URI/Sore Throat General Chief Complaint: Upper Respiratory Infection Stated Complaint: FLU S/SX SON FLU A+ Time Seen by Provider: 08/22/24 07:24 History of Present Illness HPI Narrative: Patient presents with flu symptoms, her son had tested positive, she has a lot of nausea vomiting with some shortness of breath. Try taking her son's tamiflu yesterday Related Data Allergies Allergy/AdvReac Type Severity Reaction Status Date / Time amoxicillin Allergy Unknown Unknown Verified 08/22/24 07:24 Penicillins Allergy Unknown Anaphylactic Verified 08/22/24 07:24 Shock Review of Systems Review of Systems: All systems reviewed & are unremarkable except as noted in HPI and below Exam Narrative: EXAMINATION OF ORGAN SYSTEMS/BODY AREAS: Constitutional: Vital signs per nursing GENERAL:[No acute distress, non-toxic appearing.] HEAD: Normal with no signs of head trauma. EYES: EOMI, conjunctiva normal ENT: Hearing grossly intact LUNGS: Nonlabored breathing. Clear to auscultation bilaterally HEART: [Regular rate and rhythm] ABD: [Soft], [nontender to palpation] EXT: Normal range of motion SKIN: [No rashes or lesions.] NEURO: [Alert and oriented x 3. No gross focal sensory or strength deficits.] PSYCH: Normal affect Course Vital Signs Vital signs: Vital Signs Temperature 98.9 F 08/22/24 07:21 Pulse Rate 96 08/22/24 07:21 Respiratory Rate 20 08/22/24 07:21 Blood Pressure 126/81 08/22/24 07:21 Pulse Oximetry 100 08/22/24 07:21 Oxygen Delivery Room Air 08/22/24 07:21 Temperature 98.9 F 08/22/24 07:21 Pulse Rate 96 08/22/24 07:21 Respiratory Rate 20 08/22/24 07:21 Blood Pressure 126/81 08/22/24 07:21 Pulse Oximetry 100 08/22/24 07:21 Oxygen Delivery Room Air 08/22/24 07:21 MDM - URI/Sore Throat MDM Narrative Medical decision making narrative: Patient presents after fluid exposure with URI symptoms, mostly the nausea is bothering her the most. Treated here symptomatically with improvement. There were swabs here were negative given her close exposure to known contact I will start her on Tamiflu. Patient agreeable to follow-up to PCP with return precautions. Prescriptions provided for symptoms Lab Data Labs: Lab Results 08/22/24 Range/Units 07:26 Influenza A (RT-PCR) Negative (Negative) Influenza B (RT-PCR) Negative (Negative) RSV (RT-PCR) Negative (Negative) SARS-CoV-2 RNA (RT-PCR) Negative (Negative) Discharge Plan Discharge Clinical Impression: Viral infection Patient Disposition: Home, Self-Care Condition: Stable Instructions: Viral Syndrome (ED) Additional Instructions: Please follow up with your doctor; you can always return for any further issues. Try to keep hydrated. Patient Language: Hong Konger Prescriptions: New oseltamivir [Tamiflu] 75 mg capsule 75 mg PO Q12H 5 Days Qty: 10 0RF famotidine 20 mg tablet 20 mg PO DAILY Qty: 30 0RF alum-mag hydroxide-simeth [Maalox Advanced] 200-200-20 mg/5 mL suspension 10 ml PO QID PRN (Reason: dyspepsia) Qty: 100 0RF Rx Instructions: administer between meals and at bedtime ondansetron 4 mg tablet,disintegrating 4 mg PO Q8H PRN (Reason: nausea and vomiting) Qty: 14 0RF fluticasone propionate [Allergy Relief (fluticasone)] 50 mcg/actuation spray,suspension 1 spray intranasal DAILY Qty: 16 0RF Rx Instructions: administer into each nostril Follow-up/Referrals: Santy,DO Lan [Primary Care Provider] - 2 Days Stand Alone Forms: Work/School Release IP
== END 2024-08-22 08:31 | disposition home or self-care (01) ==
PROVIDERS: Emergency Provider Emergency Medicine; PCP Student in an Organized Health Care Education/Training Program
DX: B34.9 Viral infection, unspecified (principal); Z20.822 Contact with and (suspected) exposure to COVID-19
CPT/HCPCS: 87637; 96372; 99283; A9270; J1885